=== PATIENT | female | born 2005 | race Caucasian/White ===

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

== ENCOUNTER 2023-06-04 15:11 | Emergency (ER) | payer MEDICAID, SELFPAY ==
[2023-06-04 15:12] VITALS: BP 136/98; PULSE 97; RESP 18; TEMP 36.6; O2SAT 98; BMI 18.1
--- NOTE | 2023-06-04 15:28 | HMH.EDGENADL ---
Discharge Plan Disposition Patient Disposition: Home, Self-Care Chief Complaint: PAIN Prescriptions Prescriptions: No Action No Known Home Medications Referrals Follow up/Referrals: Provider,Referral, [Primary Care Provider] - See instructions Bobbi Prieto DO [Staff Physician] - See instructions Sven Prieto DO [Staff Physician] - See instructions Activity Restrictions/Add. Instructions Additional Instructions/Restrictions: Dr. Bobbi Prieto is an [employer], follow-up with her regarding control, intermittent breast pain, and further follow-up. Dr. Sven Prieto is a family practitioner and will be able to follow you for the remainder of your care, including thyroid management. Call your family doctor to establish care for this visit to the emergency department and schedule follow-up within 48 hours to ensure improvement. If you have any worsening of your condition or any other concerning signs or symptoms, return to the emergency department or your primary care doctor for further evaluation. Take Tylenol 1000 mg every 6 hours (4 times daily) and ibuprofen 400 mg every 6 hours (4 times daily) as needed with food and water to prevent GI upset and kidney damage. 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 Patient states that she started having breast pain 4 days prior to this visit to the emergency department. Has not seen a family doctor because she does not have one and does not think her insurance will be able to cover 1. Does not take any medications. States that breast pain is bilateral, all over, associated with intermittent breast discharge that is nonbloody, non-mucousy. Patient does have 1 child, but has not breast-fed in over 9 months. No vaginal discharge or bleeding. Patient has left upper extremity control device implanted. Related Data Home Medications Medication Instructions Recorded Confirmed No Known Home Medications 05/25/23 Allergies Allergy/AdvReac Type Severity Reaction Status Date / Time No Known Allergies Allergy Verified 05/25/23 09:56 [facility] Disclaimer: The information contained in this section may have been updated after the patient was seen, as this information can be updated by other users. Medical History (Updated 06/04/23 @ 16:34 by Manuel Montes MD) Acute blood loss anemia Mazin's disease Hearing loss Hypothyroidism Hypothyroidism affecting , antepartum Impacted cerumen, bilateral Nausea Nexplanon insertion with 39 completed weeks gestation Screening for genetic disease carrier status Teen Surgical History Delivery by section Family History Other Anemia Asthma Cancer Diabetes FHx: mental illness Heart attack Hyperlipidemia Hypertension Kidney disease Stroke Thyroid disorder Social History Smoking Status: Never smoker alcohol intake: never substance use type: denies use current occupational status: unemployed Travel in the last 8 weeks: None ROS Obtained: Yes All systems reviewed & no additional complaints except as documented Physical Exam General General appearance: alert and in no apparent distress Head Head exam: atraumatic and normocephalic Eye Eye exam: Present normal appearance, PERRL and EOMI ENT ENT exam: Present mucous membranes moist Neck Neck exam: Present normal inspection, full ROM and trachea midline Chest Chest inspection: Present normal inspection and tenderness (Left breast greater than right breast.) Expanded Chest Exam Comment: Bilateral breasts are tender, left greater than right. No evidence of breast mass in any quadrant. No evidence of nipple discharge with application of pressure. No evidence of axillary lymphadenopathy or overlying skin changes of the breast. Benign exam Respiratory Respiratory exam: Absent respiratory distress, wheezes, stridor, accessory muscle use or prolonged expiratory phase Cardiovascular Cardiovascular exam: Present normal rhythm Abdominal Exam Abdominal exam: Present soft; Absent distention, tenderness, guarding, rebound or rigidity Extremities Exam Extremities exam: Absent edema Neurological Exam Neurological exam: Present alert, oriented X3, CN II-XII intact and normal gait; Absent motor sensory deficit Skin Skin exam: Present warm and dry; Absent diaphoresis or erythema Medical Decision Making Medical Records Medical records reviewed: Yes I reviewed the patient's medical records. Richar Inquiry Pt receiving controlled substance: No Richar was queried for this patient: No Vital Signs: 06/04/23 15:12 06/04/23 16:12 Temperature 97.9 F Temperature Source Oral Pulse Rate 90 Pulse Rate [Right] 97 H Respiratory Rate 18 Blood Pressure 108/75 L Blood Pressure [Right Arm] 136/98 H Blood Pressure Mean [Right Arm] 110 02 Sat by Pulse Oximetry 98 100 Oxygen Delivery Method Room Air Room Air Lab Data Lab Results 06/04/23 16:15: Urine HCG, Qual Negative Orders (Tests/Meds): ED MEDICATIONS Discontinued Medications Generic Name Dose Route Start Last Admin Trade Name Wayne PRN Reason Stop Dose Admin Ibuprofen 600 mg 06/04/23 15:26 06/04/23 15:31 Ibuprofen 600 Mg Tablet PO 06/04/23 15:27 600 mg ONCE ONE Administration ORDERS Category Date Time Status Urine , HCG Qual. 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 Patient states that she started having breast pain 4 days prior to this visit to the emergency department. Has not seen a family doctor because she does not have one and does not think her insurance will be able to cover 1. Does not take any medications. States that breast pain is bilateral, all over, associated with intermittent breast discharge that is nonbloody, non-mucousy. Patient does have 1 child, but has not breast-fed in over 9 months. No vaginal discharge or bleeding. Patient has left upper extremity control device implanted. History was obtained via conversation with patient. On arrival, patient hemodynamically stable, alert, oriented x4, appropriate, GCS 15, moving all extremities spontaneously, pupils equal and reactive to light. Full physical exam performed and significant for well-appearing female in no acute distress. Chest exam significant for tenderness of both breast, left greater than right. No overlying skin changes on the breast. No evidence of mass, swelling, focal tenderness in any quadrant of the breast. No drainage with application of pressure of either breast. No evidence of lymphadenopathy of the axilla. Differential includes , midcycle pain, fibrocystic change, malignancy, among others. Patient was given ibuprofen for symptomatic management and correction of underlying abnormalities. Because patient has no outward signs of abnormality, no palpable knots or masses, no breast discharge, and no concern for acute pathology, ultrasound was considered as well as CT imaging, but not deemed necessary at this time. Labs were also considered, but deemed unnecessary other than urine , which was negative. On reevaluation, patient resting comfortably in bed. Given patient presentation, workup, history, this most likely represents fibrocystic change versus other nonmalignant breast pain. Because patient at baseline without signs or symptoms of clinical decompensation, deemed appropriate for discharge. Results were relayed to patient who voiced understanding and were agreeable to outpatient management and follow up. At the time of discharge the patient was hemodynamically stable, tolerating PO, and mobilizing appropriately. reassurance was given, as well as appropriate follow-up. Critical Care Critical Care Time Critical Care Time: No
[2023-06-04] MEDS: IBUPROFEN 600 MG TABLET PO (15:31)
--- NOTE | 2023-06-04 16:04 | PC.NURSE ---
Rounded on pt. No needs voiced at this time. Call light remains within reach.
[2023-06-04 16:12] VITALS: BP 108/75; PULSE 90; O2SAT 100
[2023-06-04 16:21] LABS: Urine Pregnancy, HCG Qual. Negative (Negative)
[2023-06-04 16:38] VITALS: BP 108/75; PULSE 90; RESP 18; TEMP 36.6; O2SAT 100
== END 2023-06-04 16:39 | disposition home or self-care (01) ==
PROVIDERS: Emergency Provider Emergency Medicine
DX: N64.4 Mastodynia (principal); E06.3 Autoimmune thyroiditis
CPT/HCPCS: 81025; 99283

== ENCOUNTER 2023-07-12 16:44 | Outpatient (CLI) | payer MEDICAID, SELFPAY ==
[2023-07-12 17:01] LABS: Basophils # 0.1 K/mm3 (0-0.2); Basophils % 1.6 % (0.1-2.0); Eosinophils # 0.1 K/mm3 (0.0-0.4); Eosinophils % 2.1 % (0.1-12.0); Hematocrit 40.6 % (37.0-47.0); Hemoglobin 13.1 g/dL (12.2-16.2); Lymphocytes # 1.7 K/mm3 (0.7-4.5); Lymphocytes % 31.5 % (10-50); Mean Corpuscular HGB Conc 32.4 g/dL (31.8-35.4); Mean Corpuscular Hemoglobin 28.5 pg (27.0-31.2); Mean Corpuscular Volume 87.9 fl (81-99); Mean Platelet Volume 8.9 fl (7.4-10.4); Monocytes # 0.3 K/mm3 (0.1-1.0); Monocytes % 6.1 % (1.7-9.3); Neutrophils # 3.1 K/mm3 (1.8-7.8); Neutrophils % 58.6 % (37.0-80.0); Platelet Count 260 K/mm3 (142-424); Red Blood Count 4.62 M/mm3 (4.20-5.40); Red Cell Distribution Width 13.5 % (11.5-17.5); White Blood Count 5.2 K/mm3 (4.5-13.0)
[2023-07-12 17:31] LABS: Alanine Aminotransferase 20 U/L (12-78); Albumin Level 4.8 g/dl (3.5-5.0); Albumin/Globulin Ratio 1.9 (1.1-1.8); Alkaline Phosphatase 51 U/L (38-126); Anion Gap 12.3 mEq/L (5-15); Aspartate Amino Transferase 27 U/L (14-36); Bilirubin,Total 1.7 mg/dl (0.2-1.3); Blood Urea Nitrogen 16 mg/dl (7-17); Carbon Dioxide 27 mmol/L (22.0-30.0); Chloride 105 mmol/L (98-107); Estimated Glomerular Filt Rate 108 ml/min (>60); GFR (African American) 130 ML/MIN (>60); Globulin 2.5 g/dL (1.3-3.2); Potassium 4.3 mmoL/L (3.5-5.1); Sodium 140 mmol/L (136-145); Total Protein,Serum 7.3 g/dl (6.3-8.2)
[2023-07-12 17:37] LABS: Glucose 48 mg/dl (74-100)
[2023-07-12 17:49] LABS: T4 (Thyroxine) 5.5 ug/dl (5.53-11.0)
[2023-07-12 18:57] LABS: Ferritin 12.6 ng/ml (6.24-137)
[2023-07-12 19:35] LABS: Free T4 (Free Thyroxine) 0.99 ng/dl (0.78-2.19)
[2023-07-12 19:36] LABS: 25-OH Vitamin D, Total 40.7 ng/mL (30-100)
[2023-07-13 09:09] LABS: Thyroid Peroxidase Antibodies 125 IU/mL (0-26); Triiodothyronine (T3) Free 3.1 pg/mL (2.3-5.0)
[2023-07-13 16:36] LABS: Thyroglobulin Level <1.0 IU/mL (0.0-0.9)
[2023-07-14 11:54] LABS: Antinuclear Antibodies (ANA) Negative
== END 2023-07-12 23:59 ==
LOC: LAB.DROPOF 16:45
PROVIDERS: PCP Nurse Practitioner Family; Visit Provider Nurse Practitioner Family
DX: E03.9 Hypothyroidism, unspecified (principal); E06.3 Autoimmune thyroiditis; D50.9 Iron deficiency anemia, unspecified; E80.4 Gilbert syndrome
CPT/HCPCS: 80053; 82306; 82728; 84436; 84439; 84443; 84481; 85025; 86038; 86225; 86235; 86376; 86800

== ENCOUNTER 2023-07-19 13:29 | Outpatient (CLI) | payer MEDICAID, SELFPAY ==
--- NOTE | 2023-07-19 13:30 | US_ITS ---
PROCEDURE INFORMATION: Exam: US Left Breast, Complete Exam date and time: 07/19/2023 2:06 PM Age: 17 years old Clinical indication: Breast pain; Left TECHNIQUE: Imaging protocol: Complete ultrasound of all four quadrants of the left breast and the retroareolar regions, including ultrasound of the axilla when performed. COMPARISON: No relevant prior studies available. FINDINGS: ULTRASOUND: Breast ultrasound findings: Sonographic images of the left breast including the retroareolar region, all 4 quadrants and the axilla do not demonstrate any solid or cystic masses. No architectural distortion or acoustical shadowing. No skin thickening or axillary adenopathy. IMPRESSION: No sonographic evidence of malignancy. ASSESSMENT: BI-RADS Category 1: Negative.
--- NOTE | 2023-07-19 13:30 | US_ITS ---
PROCEDURE INFORMATION: Exam: US Right Breast, Complete Exam date and time: 07/19/2023 1:54 PM Age: 17 years old Clinical indication: Breast pain; Right TECHNIQUE: Imaging protocol: Complete ultrasound of all four quadrants of the right breast and the retroareolar regions, including ultrasound of the axilla when performed. COMPARISON: No relevant prior studies available. FINDINGS: ULTRASOUND: Breast ultrasound findings: Sonographic images of the right breast including the retroareolar region, all 4 quadrants and the axilla do not demonstrate any solid or cystic masses. No architectural distortion or acoustical shadowing. No skin thickening or axillary adenopathy. IMPRESSION: No sonographic evidence of malignancy. ASSESSMENT: BI-RADS Category 1: Negative.
== END 2023-07-19 23:59 | disposition home or self-care (01) ==
LOC: RAD 13:30
PROVIDERS: PCP Nurse Practitioner Family; Visit Provider Nurse Practitioner Family
DX: N64.4 Mastodynia (principal); Z80.3 Family history of malignant neoplasm of breast
CPT/HCPCS: 76641

== ENCOUNTER 2023-08-30 10:23 | Emergency (ER) | payer MEDICAID, SELFPAY ==
[2023-08-30 10:25] VITALS: BP 109/68; PULSE 82; RESP 18; TEMP 36.6; O2SAT 98; BMI 17.3
--- NOTE | 2023-08-30 10:38 | ED_ITS ---
Discharge Plan Disposition Patient Disposition: Home, Self-Care Condition: Good Prescriptions Prescriptions: New cephalexin 500 mg tablet 500 mg PO QID 7 Days Qty: 28 0RF No Action (DME) blood-glucose meter [Blood Glucose Monitoring] Kit See Rx Instructions .Route Qty: 1 0RF Rx Instructions: As directed TID for symptoms of hypoglycemia (DME) Microdot Blood Glucose System Strip See Rx Instructions .Route Qty: 50 2RF Rx Instructions: As directed TID prn (DME) lancets [Fingerstix Lancets] Misc See Rx Instructions .Route Qty: 100 1RF Rx Instructions: TID prn As directed Referrals Follow up/Referrals: Provider,Graham, [Primary Care Provider] - See instructions Nehal Villaseñor APRN [Nurse Practitioner] - 09/06/23 4:00 pm Cindy Pond APRN [Nurse Practitioner] - See instructions (Call office for appointment) Activity Restrictions/Add. Instructions Additional Instructions/Restrictions: Take medication as prescribed Follow up with your Family Doctor on September 05 at 4pm Follow up with ENT if no improvement call and make appointment Return if needed Clinical Impressions Clinical Impression: Swelling of lymph nodes Instructions Patient Instructions: Cephalexin Discharge ED Provider: Griselda Stephenson [facility] General Stated complaint: lumps under chin Mode of Arrival: Ambulatory Source of Information: Patient Limitations: No Limitations Time Seen by Provider: 08/30/23 10:38 Description of Symptoms (Recalled from Triage Doc. by RN): Pt's symptoms are lumps down midline of throat. She found them this morning and states they hurt when she touches them. HEENT Symptoms (Recalled from RN notes): Yes Resp Symptoms (Recalled from RN notes): No Skin Symptoms (Recalled from RN notes): No MS Symptoms (Recalled from RN notes): No Functional Status (Recalled from RN notes): n/a History of Present Illness Provider Complaint: Patient states that she noticed she had two sore swollen lumps under her chin not sure how long they have been there but are tender to the touch Denies recently being ill or having any other symptoms states just has two small tender areas and she was concerned with infection Related Data Previous Rx's Medication Instructions Recorded blood sugar diagnostic (Microdot #50 ea 07/15/23 Blood Glucose Monitoring System strips) blood-glucose meter (Blood Glucose #1 ea 07/15/23 Monitoring kit) lancets (Fingerstix Lancets) #100 ea 07/15/23 cephalexin 500 mg tablet 500 mg PO QID 7 days #28 tabs 08/30/23 Allergies Allergy/AdvReac Type Severity Reaction Status Date / Time No Known Allergies Allergy Verified 08/30/23 10:38 Worker's Comp Is this a Worker's Comp case?: No PFSH PFS Disclaimer: The information contained in this section may have been updated after the patient was seen, as this information can be updated by other users. Medical History Impacted cerumen, bilateral Hearing loss Acute blood loss anemia Nausea Hypothyroidism Mazin's disease Surgical History Delivery by section Patient elects for primary Family History Other Anemia Asthma Cancer Diabetes FHx: mental illness Heart attack Hyperlipidemia Hypertension Kidney disease Stroke Thyroid disorder Social History Smoking Status: Never smoker alcohol intake: never substance use type: denies use current occupational status: unemployed Travel in the last 8 weeks: None ROS Obtained: Yes All systems reviewed & no additional complaints except as documented and Yes Systems reviewed as appropriate & no additional complaints except as documented Constitutional Constitutional: Reports system reviewed and no additional complaints, except as documented and Reports as per HPI ENT Ears, Nose, Mouth, and Throat: Reports system reviewed and no additional complaints, except as documented and Reports as per HPI Cardiovascular Cardiovascular: Reports system reviewed and no additional complaints, except as documented and Reports as per HPI Respiratory Respiratory: Reports system reviewed and no additional complaints, except as documented and Reports as per HPI Gastrointestinal Gastrointestingal: Reports system reviewed and no additional complaints, except as documented and as per HPI Integumentary/Breasts Skin/Breast: Reports system reviewed and no additional complaints, except as documented, Reports as per HPI and Reports other Comments: two small tender lump like areas under her chin Physical Exam General General appearance: alert and in no apparent distress Expanded Head Exam Head image: 2 1. two small round moveable tender, swollen lymph nodes noted no external redness noted Denies difficulty swallowing or eating ENT ENT exam: Present mucous membranes moist Respiratory Respiratory exam: Present normal lung sounds bilaterally; Absent respiratory distress or wheezes Cardiovascular Cardiovascular exam: Present regular rate, normal rhythm and normal heart sounds Neurological Exam Neurological exam: Present alert, oriented X3 and normal gait Medical Decision Making Richar Inquiry Pt receiving controlled substance: No Richar was queried for this patient: No Vital Signs: 08/30/23 10:25 Temperature 97.9 F Temperature Source Oral Pulse Rate [Right Radial] 82 Respiratory Rate 18 Blood Pressure [Right Arm] 109/68 L Blood Pressure Mean [Right Arm] 81 Blood Pressure Source [Right Arm] Automatic Cuff Blood Pressure Position [Right Arm] Sitting 02 Sat by Pulse Oximetry 98 Oxygen Delivery Method Room Air
--- NOTE | 2023-08-30 10:50 | PC.NURSE ---
Provider called ent to make apptr and primary provider to make appt.
[2023-08-30 11:03] VITALS: BP 109/68; PULSE 82; RESP 18; TEMP 36.6; O2SAT 98
== END 2023-08-30 11:03 | disposition home or self-care (01) ==
PROVIDERS: Emergency Provider Nurse Practitioner
DX: R59.0 Localized enlarged lymph nodes (principal)
CPT/HCPCS: 99204; 99212; G0463

== ENCOUNTER 2023-08-30 18:33 | Emergency (ER) | payer MEDICAID, SELFPAY ==
[2023-08-30 18:44] VITALS: BP 122/74; PULSE 84; RESP 20; TEMP 36.8; O2SAT 100; BMI 17.3
[2023-08-30 18:50] LABS: Microscopic, Urine URINE MICROSCOPIC (MICROSCOPIC)
[2023-08-30 18:52] LABS: Appearance,Urine CLEAR (Clear); Bilirubin,Urine Negative (Negative); Blood, Urine Negative (Negative); Color,Urine YELLOW (Yellow); Glucose,Urine (UA) Negative (Negative); Ketones,Urine Negative (Negative); Leukocyte Esterase,Urine 1+ (Negative); Nitrate,Urine Negative (Negative); Protein,Urine Negative (Negative); Specific Gravity, Urine 1.015 (1.005-1.030); Urobilinogen,Urine 0.2 EU/dl (0.2)
[2023-08-30 18:53] LABS: Urine Pregnancy, HCG Qual. Negative (Negative)
--- NOTE | 2023-08-30 18:54 | HMH.EDGENADL ---
Discharge Plan Disposition Patient Disposition: Home, Self-Care Condition: Good Prescriptions Prescriptions: New amoxicillin 500 mg tablet 500 mg PO BID 10 Days Qty: 20 0RF ondansetron 4 mg tablet,disintegrating 4 mg PO Q8H PRN (Reason: nausea and vomiting) 4 Days Qty: 12 0RF Discontinued cephalexin 500 mg tablet 500 mg PO QID 7 Days Qty: 28 0RF No Action (DME) blood-glucose meter [Blood Glucose Monitoring] Kit See Rx Instructions .Route Qty: 1 0RF Rx Instructions: As directed TID for symptoms of hypoglycemia (DME) Microdot Blood Glucose System Strip See Rx Instructions .Route Qty: 50 2RF Rx Instructions: As directed TID prn (DME) lancets [Fingerstix Lancets] Misc See Rx Instructions .Route Qty: 100 1RF Rx Instructions: TID prn As directed Referrals Follow up/Referrals: Provider,Referral, [Primary Care Provider] - See instructions Activity Restrictions/Add. Instructions Additional Instructions/Restrictions: You were evaluated in the emergency department today. You tested positive for strep. Please moss picker your prescriptions at the pharmacy and take the amoxicillin as prescribed. I prescribed you Zofran to have as needed for nausea and vomiting. Take Tylenol and ibuprofen at home as needed for pain or fever. Your thyroid studies and labs are otherwise reassuring. Please follow-up with your primary care provider as instructed as well as ENT. Return to the emergency department for new or worsening symptoms. Clinical Impressions Clinical Impression: Acute streptococcal pharyngitis, Enlarged submental lymph node Stand Alone Forms Stand Alone Forms: Work/School Release Instructions Patient Instructions: DI for Strep Throat Discharge ED Provider: Carol Reeves General Adult HPI General Chief complaint: Abdominal Pain Stated complaint: body aches,fever,headache Time Seen by Provider: 08/30/23 18:41 Mode of Arrival: Ambulatory Source of Information: Patient Limitations: No Limitations Description of Symptoms (Recalled from ER Triage Doc. by RN): pt to ed c/o generalized abd pain, abd bloating and swollen nodules under chin. pt states her nodules appeared this morning. History of Present Illness HPI narrative: This patient is a 17-year-old female with history of hypothyroidism and Gilbert syndrome presenting to the emergency department for evaluation with concern for fever, 2 small lumps under her chin, sore throat, generalized abdominal pain, nausea, bloating. She also expressed concern that she has not had a period in a few months and does not know if she could be . She has she was evaluated in an urgent treatment center today and they did not do anything for her. She states she is concerned because she did note these labs could potentially be related to her thyroid disease. She denies any other concerns, such as chest pain, shortness of breath, vomiting, changes in bowel movements, abnormal vaginal discharge, rashes, or swelling. She denies any dental issues. She does have facial piercings but states that they are all old and she has had no new issues with them. No trismus, drooling, dysphagia, dyspnea, or other concerns. Related Data Previous Rx's Medication Instructions Recorded blood sugar diagnostic (Microdot #50 ea 07/15/23 Blood Glucose Monitoring System strips) blood-glucose meter (Blood Glucose #1 ea 07/15/23 Monitoring kit) lancets (Fingerstix Lancets) #100 ea 07/15/23 amoxicillin 500 mg tablet 500 mg PO BID 10 days #20 tabs 08/30/23 ondansetron 4 mg disintegrating 4 mg PO Q8H PRN nausea and 08/30/23 tablet vomiting 4 days #12 tabs Allergies Allergy/AdvReac Type Severity Reaction Status Date / Time No Known Allergies Allergy Verified 08/30/23 10:38 [facility] Disclaimer: The information contained in this section may have been updated after the patient was seen, as this information can be updated by other users. Medical History Impacted cerumen, bilateral Hearing loss Acute blood loss anemia Nausea Hypothyroidism Mazin's disease Surgical History Delivery by section Family History Other Anemia Asthma Cancer Diabetes FHx: mental illness Heart attack Hyperlipidemia Hypertension Kidney disease Stroke Thyroid disorder Social History Smoking Status: Never smoker alcohol intake: never substance use type: denies use current occupational status: unemployed Travel in the last 8 weeks: None ROS Obtained: Yes All systems reviewed & no additional complaints except as documented Physical Exam General General appearance: alert and in no apparent distress Head Head exam: atraumatic and normocephalic Eye Eye exam: Present normal appearance, PERRL and EOMI ENT ENT exam: Present mucous membranes moist, normal external ear exam and other (Mild pharyngeal erythema with very mild exudates. No tonsillar mass, edema, uvular deviation, or other concerns. No trismus, drooling, or other issues.) Neck Neck exam: Present full ROM, trachea midline and lymphadenopathy (Mild submental and submandibular. No large area of swelling or masses.); Absent tenderness Chest Chest inspection: Present normal inspection and symmetric chest wall rise; Absent tenderness Respiratory Respiratory exam: Present normal lung sounds bilaterally; Absent respiratory distress, wheezes, stridor or accessory muscle use Cardiovascular Cardiovascular exam: Present regular rate and normal rhythm Abdominal Exam Abdominal exam: Present soft; Absent distention, tenderness, guarding, rebound or rigidity Extremities Exam Extremities exam: Present normal inspection, full ROM and normal capillary refill; Absent tenderness or edema Back Exam Back exam: Present normal inspection and full ROM; Absent tenderness Neurological Exam Neurological exam: Present alert, oriented X3, CN II-XII intact and normal gait; Absent motor sensory deficit Psychiatric Psychiatric exam: Present normal affect and normal mood Skin Skin exam: Present warm and dry Medical Decision Making Medical Records Medical records reviewed: Yes I reviewed the patient's medical records. Richar Inquiry Pt receiving controlled substance: No Vital Signs: 08/30/23 18:44 08/30/23 20:48 Temperature 98.2 F 99.9 F H Temperature Source Oral Oral Pulse Rate 84 Pulse Rate [Left Radial] 84 Respiratory Rate 20 20 Blood Pressure 97/57 L Blood Pressure [Right Arm] 122/74 Blood Pressure Mean [Right Arm] 90 Blood Pressure Source Automatic Cuff Blood Pressure Position Sitting 02 Sat by Pulse Oximetry 100 Oxygen Delivery Method Room Air Room Air Lab Data Lab results reviewed: Yes I reviewed the patient's lab results. Lab Results 08/30/23 18:43: Urine Color Yellow, Urine Appearance Clear, Urine pH 7.0, Ur Specific [place] 1.015, Urine Protein Negative, Urine Glucose (UA) Negative, Urine Ketones Negative, Urine Blood Negative, Urine Nitrate Negative, Urine Bilirubin Negative, Urine Urobilinogen 0.2, Ur Leukocyte Esterase 1+ A, Urine RBC None, Urine WBC 3-5, Ur Squamous Epith Cells 10-20, Urine Bacteria 1+, Urine HCG, Qual Negative 08/30/23 19:25: Group A Strep Rapid Positive A 08/30/23 19:27: SARS-CoV-2 (PCR) Not detected, Influenza A Untype (PCR) Not detected, Influenza Type B (PCR) Not detected 08/30/23 19:49: WBC 5.1, RBC 4.92, Hgb 14.0, Hct 43.1, MCV 87.6, MCH 28.4, MCHC 32.4, RDW 13.9, Plt Count 184, MPV 8.3, Neut % (Auto) 77.9, Lymph % (Auto) 14.8, [place] % (Auto) 5.4, Eos % (Auto) 0.8, Baso % (Auto) 1.0, Neut # (Auto) 4.0, Lymph # (Auto) 0.8, [place] # (Auto) 0.3, Eos # (Auto) 0.0, Baso # (Auto) 0.1, Sodium 138, Potassium 3.6, Chloride 102, Carbon Dioxide 24, Anion Gap 15.6 H, BUN 12, Creatinine 0.60, Estimated Creat Clear 106, Estimated GFR 129, Est GFR ( Amer) 156, Glucose 91, Calcium 9.8, Total Bilirubin 0.7, AST 31, ALT 31, Alkaline Phosphatase 50, Total Protein 7.7, Albumin 4.8, Globulin 2.9, Albumin/Globulin Ratio 1.7, Lipase 149, TSH 3.89, Thyroxine (T4) 5.7, Monoscreen Negative 08/30/23 19:49 08/30/23 19:49 Orders (Tests/Meds): ED MEDICATIONS Discontinued Medications Generic Name Dose Route Start Last Admin Trade Name Freq PRN Reason Stop Dose Admin Acetaminophen 1,000 mg 08/30/23 19:02 08/30/23 19:42 Acetaminophen 500mg Tab PO 08/30/23 19:03 1,000 mg ONCE ONE Administration Amoxicillin 500 mg 08/30/23 20:17 08/30/23 20:45 Amoxicillin 500mg Capsule PO 08/30/23 20:18 500 mg ONCE ONE Administration Ibuprofen 800 mg 08/30/23 19:02 08/30/23 19:42 Ibuprofen 400 Mg Tablet PO 08/30/23 19:03 800 mg ONCE ONE Administration Ondansetron HCl 4 mg 08/30/23 19:02 08/30/23 19:42 Ondansetron 4mg Odt SL 08/30/23 19:03 4 mg ONCE ONE Administration ORDERS Category Date Time Status Complete Blood Count Auto Diff Stat Lab 08/30/23 19:49 Completed Comprehensive Metabolic Panel Stat Lab 08/30/23 19:49 Completed Lipase Stat Lab 08/30/23 19:49 Completed Monoscreen (Rapid) Stat Lab 08/30/23 19:49 Completed Rapid PCR Covid and Flu A/B Stat Lab 08/30/23 19:27 Completed Strep Scrn Group A (Rapid) Stat Lab 08/30/23 19:25 Completed T4 (Thyroxine) Stat Lab 08/30/23 19:49 Completed Thyroid Stimulating Hormone Stat Lab 08/30/23 19:49 Completed Urinalysis and Microscopic Stat Lab 08/30/23 18:43 Completed Urine , HCG Qual. Stat Lab 08/30/23 18:43 Completed Urine Culture Stat Micro 08/30/23 18:43 Received Medical Decision Narrative: In summary, this patient is a 17-year-old female presenting to the Emergency Department for evaluation of fever, sore throat, swelling under her chin, generalized abdominal pain, nausea. Differential diagnoses considered include but are not limited to infectious mononucleosis, strep pharyngitis, viral syndrome, lymphadenitis, urinary tract infection, . Ruling out the most morbid conditions drove assessment. I reviewed patient's past medical records and noted her evaluation at [facility] earlier today and diagnosed with lymphadenopathy with prescription for Keflex. On exam, the patient is very well-appearing. Vitals are reassuring on cardiac telemetry. She has mild pharyngeal erythema and exudates as well as mild submandibular and submental lymphadenopathy with normal cardiopulmonary and abdominal exams. Given reassuring abdominal exam, doubt surgical intra-abdominal pathology at this time. Workup included CBC, CMP, lipase, TSH, T4, mono testing, strep swab, viral swab, urinalysis, and urine test. She was given Tylenol and Zofran for symptomatic improvement. Labs were obtained that demonstrated positive strep swab without other acutely concerning abnormalities. Thyroid studies normal, no significant leukocytosis. On reassessment, patient had good improvement after administration of emergency bed. She is resting complete. At this time, feel that she is appropriate for treatment of strep and is discharged home with close follow-up. She was given prescription for amoxicillin and Zofran, instructions for supportive management, and was discharged with strict return precautions after all questions were answered. Critical Care Critical Care Time Critical Care Time: No
[2023-08-30 19:10] LABS: Bacteria,Urine 1+ /lpf
[2023-08-30 19:34] LABS: Coronavirus 19, PCR Not Detected (NotDetected); Influenza A, PCR Not Detected (NotDetected); Influenza B, PCR Not Detected (NotDetected)
[2023-08-30] MEDS: IBUPROFEN 400 MG TABLET 800 MG PO (19:42)
[2023-08-30] MEDS: ACETAMINOPHEN 500MG TAB 1000 MG PO (19:42)
[2023-08-30] MEDS: ONDANSETRON 4MG ODT 4 MG SL (19:42)
[2023-08-30 19:47] LABS: Strep Scrn Group A (Rapid) Positive (Negative)
--- NOTE | 2023-08-30 19:51 | PC.NURSE ---
20 G IV to RAC. blood collected and sent to lab
[2023-08-30 19:58] LABS: Basophils # 0.1 K/mm3 (0-0.2); Eosinophils % 0.8 % (0.1-12.0); Hematocrit 43.1 % (37.0-47.0); Lymphocytes # 0.8 K/mm3 (0.7-4.5); Lymphocytes % 14.8 % (10-50); Mean Corpuscular HGB Conc 32.4 g/dL (31.8-35.4); Mean Corpuscular Hemoglobin 28.4 pg (27.0-31.2); Mean Corpuscular Volume 87.6 fl (81-99); Mean Platelet Volume 8.3 fl (7.4-10.4); Monocytes # 0.3 K/mm3 (0.1-1.0); Monocytes % 5.4 % (1.7-9.3); Neutrophils % 77.9 % (37.0-80.0); Platelet Count 184 K/mm3 (142-424); Red Blood Count 4.92 M/mm3 (4.20-5.40); Red Cell Distribution Width 13.9 % (11.5-17.5); White Blood Count 5.1 K/mm3 (4.5-13.0)
[2023-08-30 20:07] LABS: Chloride 102 mmol/L (98-107); Potassium 3.6 mmoL/L (3.5-5.1); Sodium 138 mmol/L (136-145)
[2023-08-30 20:09] LABS: Blood Urea Nitrogen 12 mg/dl (7-17); Creatinine Clearance Estimated 106 mL/min (50-200); Estimated Glomerular Filt Rate 129 ml/min (>60); GFR (African American) 156 ML/MIN (>60); Lipase 149 U/L (23-300)
[2023-08-30 20:10] LABS: Alanine Aminotransferase 31 U/L (12-78); Albumin Level 4.8 g/dl (3.5-5.0); Albumin/Globulin Ratio 1.7 (1.1-1.8); Alkaline Phosphatase 50 U/L (38-126); Anion Gap 15.6 mEq/L (5-15); Aspartate Amino Transferase 31 U/L (14-36); Bilirubin,Total 0.7 mg/dl (0.2-1.3); Calcium 9.8 mg/dl (8.4-10.2); Carbon Dioxide 24 mmol/L (22.0-30.0); Globulin 2.9 g/dL (1.3-3.2); Glucose 91 mg/dl (74-100); Total Protein,Serum 7.7 g/dl (6.3-8.2)
[2023-08-30 20:26] LABS: Monoscreen (Rapid) Negative (Negative)
[2023-08-30 20:28] LABS: T4 (Thyroxine) 5.7 ug/dl (5.53-11.0)
[2023-08-30 20:42] LABS: Thyroid Stimulating Hormone 3.89 uIU/mL (0.465-4.68)
[2023-08-30] MEDS: AMOXICILLIN 500MG CAPSULE 500 MG PO (20:45)
[2023-08-30 20:48] VITALS: BP 97/57; PULSE 84; RESP 20; TEMP 37.7; O2SAT 97
== END 2023-08-30 21:04 | disposition home or self-care (01) ==
PROVIDERS: Emergency Provider Emergency Medicine
DX: J02.0 Streptococcal pharyngitis (principal); R07.0 Pain in throat; R10.84 Generalized abdominal pain; R59.0 Localized enlarged lymph nodes; R50.9 Fever, unspecified; R11.0 Nausea
CPT/HCPCS: 80053; 81001; 81025; 83690; 84436; 84443; 85025; 86318; 87086; 87430; 87636; 99283

== ENCOUNTER 2023-09-05 17:37 | Emergency (ER) | payer MEDICAID, SELFPAY ==
[2023-09-05] VITALS (7 sets, daily range): BP systolic 97–119; BP diastolic 51–74; PULSE 66–105; RESP 15–20; TEMP 36.7–36.9; O2SAT 89–100; BMI 19.1
--- NOTE | 2023-09-05 18:14 | HMH.EDGENADL ---
Discharge Plan Disposition Patient Disposition: Home, Self-Care Prescriptions Prescriptions: No Action (DME) blood-glucose meter [Blood Glucose Monitoring] Kit See Rx Instructions .Route Qty: 1 0RF Rx Instructions: As directed TID for symptoms of hypoglycemia (DME) Microdot Blood Glucose System Strip See Rx Instructions .Route Qty: 50 2RF Rx Instructions: As directed TID prn (DME) lancets [Fingerstix Lancets] Misc See Rx Instructions .Route Qty: 100 1RF Rx Instructions: TID prn As directed amoxicillin 500 mg tablet 500 mg PO BID 10 Days Qty: 20 0RF ondansetron 4 mg tablet,disintegrating 4 mg PO Q8H PRN (Reason: nausea and vomiting) 4 Days Qty: 12 0RF Referrals Follow up/Referrals: Chrissy Obrien DO [Staff Physician] - See instructions Provider,Referral, [Primary Care Provider] - See instructions Activity Restrictions/Add. Instructions Additional Instructions/Restrictions: No emergent medical condition identified today however he did have a positive test most likely too early to be seen on an ultrasound but we cannot rule in an intrauterine therefore we could not rule out an ectopic . Please follow-up within 48 hours with your VULNERABILITY ASSESSMENT ANALYST doctor for repeat quantitative beta-hCG and possibly repeat ultrasound. Return with any significant worsening of your symptoms. Clinical Impressions Clinical Impression: Abdominal pain, diffuse, , location unknown Instructions Patient Instructions: DI for Acute Abdominal Pain Discharge ED Provider: Ronak Becerra General Adult HPI General Chief complaint: Abdominal Pain Stated complaint: stomach ache for 3 days Time Seen by Provider: 09/05/23 18:01 History of Present Illness HPI narrative: Patient is a 17-year-old female presenting today with diffuse abdominal pain. States this been ongoing for about a week she had a fever over the last several days Tmax of 10 2-1 03 last fever was yesterday. She was in urgent treatment clinic and in the emergency department recently was diagnosed with strep throat started on antibiotics she never had any throat pain. Denies any dysuria diarrhea or constipation or any vaginal discharge or vaginal bleeding. States the abdominal pain has been worsening she has been nauseated. She states that she believes that she is late on her. Has had negative test at home but is concerned that she possibly could be . Related Data Previous Rx's Medication Instructions Recorded blood sugar diagnostic (Microdot #50 ea 07/15/23 Blood Glucose Monitoring System strips) blood-glucose meter (Blood Glucose #1 ea 07/15/23 Monitoring kit) lancets (Fingerstix Lancets) #100 ea 07/15/23 amoxicillin 500 mg tablet 500 mg PO BID 10 days #20 tabs 08/30/23 ondansetron 4 mg disintegrating 4 mg PO Q8H PRN nausea and 08/30/23 tablet vomiting 4 days #12 tabs Allergies Allergy/AdvReac Type Severity Reaction Status Date / Time No Known Allergies Allergy Verified 08/30/23 10:38 [facility] Disclaimer: The information contained in this section may have been updated after the patient was seen, as this information can be updated by other users. Medical History Impacted cerumen, bilateral Hearing loss Acute blood loss anemia Nausea Hypothyroidism Mazin's disease Surgical History Delivery by section Family History Other Anemia Asthma Cancer Diabetes FHx: mental illness Heart attack Hyperlipidemia Hypertension Kidney disease Stroke Thyroid disorder Social History Smoking Status: Never smoker alcohol intake: never substance use type: denies use current occupational status: unemployed Travel in the last 8 weeks: None ROS Obtained: Yes All systems reviewed & no additional complaints except as documented Physical Exam General General appearance: alert and in no apparent distress Respiratory Respiratory exam: Present normal lung sounds bilaterally Cardiovascular Cardiovascular exam: Present regular rate Abdominal Exam Abdominal exam: Present soft and tenderness (Diffuse tenderness not localizable no rebound or guarding or masses present) Neurological Exam Neurological exam: Present alert and oriented X3 Medical Decision Making Richar Inquiry Pt receiving controlled substance: No Vital Signs: 09/05/23 17:38 09/05/23 18:00 09/05/23 18:30 Temperature 98.4 F Temperature Source Oral Pulse Rate 105 H 66 Pulse Rate [Right] 97 H Respiratory Rate 16 20 18 Blood Pressure 119/65 105/67 L Blood Pressure [Right Arm] 119/65 Blood Pressure Mean [Right Arm] 83 Blood Pressure Source [Right Arm] Automatic Cuff Blood Pressure Position Sitting Sitting 02 Sat by Pulse Oximetry 98 99 99 Oxygen Delivery Method Room Air Room Air Room Air Lab Data Lab results reviewed: Yes I reviewed the patient's lab results. Lab Results 09/05/23 18:15: WBC 5.7, RBC 4.71, Hgb 13.1, Hct 39.9, MCV 84.8, MCH 27.9, MCHC 32.9, RDW 13.6, Plt Count 206, MPV 8.5, Neut % (Auto) 52.5, Lymph % (Auto) 40.6, [place] % (Auto) 4.7, Eos % (Auto) 0.6, Baso % (Auto) 1.6, Neut # (Auto) 3.0, Lymph # (Auto) 2.3, [place] # (Auto) 0.3, Eos # (Auto) 0.0, Baso # (Auto) 0.1, Sodium 136, Potassium 3.5, Chloride 101, Carbon Dioxide 28, Anion Gap 10.5, BUN 10, Creatinine 0.60, Estimated Creat Clear 106, Estimated GFR 129, Est GFR ( Amer) 156, Glucose 94, Calcium 9.2, Total Bilirubin 1.6 H, AST 31, ALT 30, Alkaline Phosphatase 49, Troponin I < 0.01, Total Protein 7.6, Albumin 4.3, Globulin 3.3 H, Albumin/Globulin Ratio 1.3, Lipase 92, Serum HCG, Qual Positive, HCG, Quant 162 H 09/05/23 18:15 09/05/23 18:15 Orders (Tests/Meds): ED MEDICATIONS Discontinued Medications Generic Name Dose Route Start Last Admin Trade Name Geneq PRN Reason Stop Dose Admin Acetaminophen 1,000 mg 09/05/23 19:15 09/05/23 20:57 Acetaminophen 1,000mg/100ml Vial IV 09/05/23 19:16 1,000 mg ONCE ONE Administration Lactated Ringer's 1,000 mls @ 999 mls/hr 09/05/23 18:15 09/05/23 18:47 Lactated Ringer's 1000 Ml Bag IV 09/05/23 19:15 999 mls/hr .Q1H1M KELLY Administration Ketorolac Tromethamine 15 mg 09/05/23 18:12 09/05/23 19:14 Ketorolac 30mg/Ml Vial IV 09/05/23 18:13 Not Given ONCE ONE Ondansetron HCl 4 mg 09/05/23 18:12 09/05/23 18:47 Ondansetron 4mg/2ml Vial IV 09/05/23 18:13 4 mg ONCE ONE Administration ORDERS Category Date Time Status CBC w/Auto Diff [Complete Blood Count Auto Diff] Stat Lab 09/05/23 18:15 Completed CMP [Comprehensive Metabolic Panel] Stat Lab 09/05/23 18:15 Completed HCG Qualitative, Serum Stat Lab 09/05/23 18:15 Completed HCG,Quantitative Stat Lab 09/05/23 18:15 Completed Lipase Stat Lab 09/05/23 18:15 Completed Trop I [Troponin I] Stat Lab 09/05/23 18:15 Completed Troponin I Q3H Lab 09/05/23 21:15 Ordered Troponin I Q3H Lab 09/06/23 00:15 Ordered US OB transvaginal Stat Ultrasound 09/05/23 19:12 Taken Medical Decision Narrative: Patient is a 17-year-old female presenting today with diffuse abdominal pain she believes that she may be and she is not yet aware her period would be but she is about 14 days out from when she had sex. She had negative test at home but will get a serum hCG. She has diffuse abdominal tenderness this is her third ED visit for this we will get a CT scan for further evaluation. Differential is broad including constipation, bowel obstruction, ruptured ectopic etc. hCG was qualitatively and quantitatively positive below the discriminatory zone however ectopic remains on the differential given her abdominal pain transvaginal ultrasound was performed which did not demonstrate any obvious abnormalities no free fluid no intrauterine however cannot rule out an ectopic at this point. She will follow-up with Dr. Fried in 48 hours for repeat quantitative beta-hCG and possibly repeat ultrasound. Did not get a CAT scan she was feeling much better on reassessment serial abdominal exams are benign. She understands that this is of unknown location. Patient was discharged in stable condition. Return precautions emphasized. Critical Care Critical Care Time Critical Care Time: No
[2023-09-05 18:27] LABS: Basophils # 0.1 K/mm3 (0-0.2); Basophils % 1.6 % (0.1-2.0); Eosinophils % 0.6 % (0.1-12.0); Hematocrit 39.9 % (37.0-47.0); Hemoglobin 13.1 g/dL (12.2-16.2); Lymphocytes # 2.3 K/mm3 (0.7-4.5); Lymphocytes % 40.6 % (10-50); Mean Corpuscular HGB Conc 32.9 g/dL (31.8-35.4); Mean Corpuscular Hemoglobin 27.9 pg (27.0-31.2); Mean Corpuscular Volume 84.8 fl (81-99); Mean Platelet Volume 8.5 fl (7.4-10.4); Monocytes # 0.3 K/mm3 (0.1-1.0); Monocytes % 4.7 % (1.7-9.3); Neutrophils % 52.5 % (37.0-80.0); Platelet Count 206 K/mm3 (142-424); Red Blood Count 4.71 M/mm3 (4.20-5.40); Red Cell Distribution Width 13.6 % (11.5-17.5); White Blood Count 5.7 K/mm3 (4.5-13.0)
[2023-09-05 18:34] LABS: Chloride 101 mmol/L (98-107); Potassium 3.5 mmoL/L (3.5-5.1); Sodium 136 mmol/L (136-145)
[2023-09-05 18:35] LABS: HCG Qualitative, Serum Positive (Negative)
[2023-09-05 18:36] LABS: Alanine Aminotransferase 30 U/L (12-78); Alkaline Phosphatase 49 U/L (38-126); Aspartate Amino Transferase 31 U/L (14-36); Bilirubin,Total 1.6 mg/dl (0.2-1.3); Blood Urea Nitrogen 10 mg/dl (7-17); Creatinine Clearance Estimated 106 mL/min (50-200); Estimated Glomerular Filt Rate 129 ml/min (>60); GFR (African American) 156 ML/MIN (>60)
[2023-09-05 18:37] LABS: Albumin Level 4.3 g/dl (3.5-5.0); Albumin/Globulin Ratio 1.3 (1.1-1.8); Anion Gap 10.5 mEq/L (5-15); Calcium 9.2 mg/dl (8.4-10.2); Carbon Dioxide 28 mmol/L (22.0-30.0); Globulin 3.3 g/dL (1.3-3.2); Glucose 94 mg/dl (74-100); Lipase 92 U/L (23-300); Total Protein,Serum 7.6 g/dl (6.3-8.2)
[2023-09-05] MEDS: LACTATED RINGERS 1000ML 1,000 ML 999 ML IV (18:47)
[2023-09-05] MEDS: ONDANSETRON 4MG/2ML VIAL 4 MG IV (18:47)
[2023-09-05 19:11] LABS: HCG,Quantitative 162 mIU/ml (0-5.42); Troponin I < 0.01 ng/ml (0.00-0.034)
--- NOTE | 2023-09-05 19:12 | US_ITS ---
PROCEDURE INFORMATION: Exam: US , Transvaginal and US Duplex Artery and Vein, Ovaries, Complete Exam date and time: 09/05/2023 8:14 PM Age: 17 years old Clinical indication: complicated by abdominal or pelvic pain; Generalized abdominal pain; First trimester (<14 weeks 0 days); Gestational age or lmp: Unkown; ; Additional info: Positive test diffuse abd pn, RO ectopic TECHNIQUE: Imaging protocol: Real-time transvaginal obstetrical ultrasound of the maternal pelvis and a first trimester with image documentation. Transvaginal imaging was used for better evaluation of the fetus, adnexa, and/or cervix. Real-time duplex ultrasound scan of the arterial and venous flow of the ovaries with B-mode, color Doppler flow and spectral waveform analysis, Complete Duplex. Duplex exam was performed to evaluate for torsion and other vascular conditions. Total images: 539 COMPARISON: US OB BIOPHYSICAL PROFILE 06/18/2022 2:34 PM FINDINGS: Other findings: Color and spectral Doppler flow is present to both ovaries with arterial and venous waveforms. No torsion. GESTATION: Gestation: No intrauterine gestation greater than 5 weeks. MATERNAL: Uterus: Anteverted uterus is normal in size, contour and echotexture. No uterine mass. Endometrial thickness 12 mm. Right ovary/adnexa: Right ovary measures 3.83 cm x 1.57 cm x 1.35 cm. Right ovarian volume is 4.25 mL. Physiologic appearance. Left ovary/adnexa: Left ovary measures 4.53 cm x 2.49 cm x 1.43 cm. Left ovarian volume is 8.45 mL. Physiologic appearance. 13 mm dominant follicle. Recently collapsed follicle. Intraperitoneal space: Small quantity free pelvic fluid. No adnexal mass. IMPRESSION: 1. No intrauterine gestation greater than 5 weeks. Differential includes: Intrauterine gestation of less than 5 weeks, nonvisualized ectopic, and spontaneous . Please correlate with serial beta HCG values and follow-up ultrasound as necessary. 2. Small quantity free pelvic fluid. 3. Normal ovaries. No torsion.
--- NOTE | 2023-09-05 19:45 | PC.NURSE ---
Change of shift assessment. Patient sitting in bed with tech in room obtaining set of vitals at this time. Patient denies needs at this time.
--- NOTE | 2023-09-05 20:12 | PC.NURSE ---
Patient transported to US at this time.
[2023-09-05] MEDS: ACETAMINOPHEN 1,000MG/100ML VIAL 1000 MG IV (20:57)
== END 2023-09-05 21:27 | disposition home or self-care (01) ==
PROVIDERS: Emergency Provider Student in an Organized Health Care Education/Training Program
DX: O26.891 Other specified pregnancy related conditions, first trimester (principal); R10.84 Generalized abdominal pain; Z3A.01 Less than 8 weeks gestation of pregnancy
CPT/HCPCS: 76817; 80053; 83690; 84484; 84702; 84703; 85025; 96361; 96374; 96375; 99284; J0131; J2405; J7120

== ENCOUNTER 2023-09-07 13:42 | Outpatient (CLI) | payer MEDICAID, SELFPAY ==
[2023-09-07 15:03] LABS: HCG,Quantitative 365 mIU/ml (0-5.42)
== END 2023-09-07 23:59 | disposition home or self-care (01) ==
LOC: LAB 13:43
PROVIDERS: Visit Provider Obstetrics & Gynecology
DX: Z32.00 Encounter for pregnancy test, result unknown (principal)
CPT/HCPCS: 36415; 84144; 84702

== ENCOUNTER 2023-09-22 16:54 | Outpatient (CLI) | payer OTHER, MEDICAID, SELFPAY ==
[2023-09-26 20:22] LABS: Neisseria gonorrhoeae, NAA Negative (Negative)
== END 2023-09-22 23:59 | disposition home or self-care (01) ==
LOC: LAB.DROPOF 16:55
PROVIDERS: PCP Obstetrics & Gynecology; Visit Provider Obstetrics & Gynecology
DX: O21.9 Vomiting of pregnancy, unspecified (principal); Z3A.01 Less than 8 weeks gestation of pregnancy
CPT/HCPCS: 87086; 87491; 87591